=== PATIENT | male | born 1990 | race Caucasian/White ===

== ENCOUNTER 2021-04-20 02:20 | Emergency (ER) | payer SELFPAY ==
[~2021-04-20] VITALS: Ht 162.6 cm; Wt 64.4 kg
--- NOTE | 2021-04-20 02:25 | NUR ---
PT KB FROM STREET C/O GEN BODY PAIN. RELEASED FROM DETENTION TODAY. PLACED IN BED 4, ER MD AT BEDSIDE FOR EVAL. AWAITING ORDERS.
[2021-04-20] MEDS ORDERED: oxyCODONE/APAP (5/325 MG) 1 UDTAB TABLET ONE (02:47)
[2021-04-20] MEDS ORDERED: ONDANSETRON 4 MG TAB.RAPDIS ONE (02:47)
[2021-04-20] MEDS ORDERED: ONDANSETRON 4 MG TAB.RAPDIS SL ONE (03:00)
[2021-04-20] MEDS ORDERED: oxyCODONE/APAP (5/325 MG) 1 UDTAB TABLET PO ONE (03:00)
[2021-04-20 03:07] VITALS: BP 125/79
[2021-04-20] MEDS ORDERED: SULF1TAB48 PO (03:20)
--- NOTE | 2021-04-20 03:21 | NUR ---
Patient discharged to home in stable condition. Written and verbal after care instructions given. Patient verbalizes understanding of instruction.pt. ambulatory with a steady gait
== END 2021-04-20 04:05 | disposition home or self-care (01) ==
LOC: ER 02:23
DX: L03.031 Cellulitis of right toe (principal); R23.8 Other skin changes; Z76.5 Malingerer [conscious simulation]; Z59.0 Homelessness; Z79.899 Other long term (current) drug therapy
CPT/HCPCS: 99283; Q0162

== ENCOUNTER 2021-06-07 01:44 | Emergency (ER) | payer SELFPAY ==
[~2021-06-07] VITALS: Ht 167.6 cm; Wt 54.4 kg
[~2021-06-07 01:44] MED LIST: SULF1TAB48 PO
--- NOTE | 2021-06-07 01:55 | NUR ---
PRESENTED TO THE ER FOR EVALUATION OF EPIGASTRIC PAIN FOR THE PAST FEW HOURS. NO VOMITING, NO FEVER OR CHILLS. PT WAS PLACED IN BED 4 ER, ON MONITOR. VSS. WILL CONT TO MONITOR
[2021-06-07] MEDS ORDERED: ONDANSETRON HCL/PF 4 MG/2 ML VIAL ONE (01:59)
[2021-06-07] MEDS ORDERED: MAG HYDROX/AL HYDROX/SIMETH 30 ML UDC ONE (01:59)
[2021-06-07] MEDS ORDERED: MAG HYDROX/AL HYDROX/SIMETH 30 ML UDC PO ONE (02:00)
[2021-06-07] MEDS ORDERED: IV NS 0.9% 1,000 ML BAG IV ONE (02:00)
[2021-06-07] MEDS ORDERED: ONDANSETRON HCL/PF 4 MG/2 ML VIAL IVP ONE (02:00)
[2021-06-07 02:18] LABS: BASOPHILS # (AUTO) 0.1 K/uL (0.0-0.2); BASOPHILS % (AUTO) 0.5 % (0.0-2.0); EOSINOPHILS % (AUTO) 1.3 % (0.0-6.0); HEMATOCRIT 47 % (39-51); HEMOGLOBIN 15.9 g/dL (13.5-17.5); LYMPHOCYTES # (AUTO) 2.7 K/uL (0.8-4.8); MEAN CORPUSCULAR HGB CONC 34 g/dl (31.0-36.0); MEAN CORPUSCULAR VOLUME 90 fL (80-96); MONOCYTES # (AUTO) 0.9 K/uL (0.1-1.30); NEUTROPHILS # (AUTO) 7.1 K/uL (1.8-8.9); NEUTROPHILS % (AUTO) 65.2 % (43.0-81.0); PLATELET COUNT (AUTO) 220 K/uL (150-450); RED BLOOD CELL COUNT(AUTO) 5.17 MIL/uL (4.5-6.0); WHITE BLOOD COUNT (AUTO) 10.8 K/uL (4.3-11.0)
[2021-06-07 02:25] LABS: CALCIUM, SERUM 8.6 mg/dL (8.5-10.1); CREATININE 0.9 mg/dL (0.6-1.3)
[2021-06-07 02:32] LABS: ALBUMIN 4.1 g/dL (3.4-5.0); BILIRUBIN,DIRECT 0.1 mg/dL (0.0-0.2); BILIRUBIN,TOTAL 0.3 mg/dL (0.2-1.0); TOTAL PROTEIN, SERUM 7.7 g/dL (6.4-8.2)
--- NOTE | 2021-06-07 03:09 | NUR ---
LAYING DOWN IN BED REPORTED FEELING GOOD AND READY TO GET DISCHARGED. VSS. MADE AWARE
[2021-06-07] MEDS ORDERED: OMEP40CA21 PO (03:46)
[2021-06-07 03:58] VITALS: BP 115/74
--- NOTE | 2021-06-07 03:58 | NUR ---
Patient discharged to home in stable condition. Written and verbal after care instructions given. Patient verbalizes understanding of instruction.
--- NOTE | 2021-06-07 03:58 | NUR ---
IV removed. Catheter intact and site benign. Pressure and 4x4 applied to site. No bleeding noted.
== END 2021-06-07 03:58 | disposition home or self-care (01) ==
LOC: ER 01:45
DX: K21.9 Gastro-esophageal reflux disease without esophagitis (principal)
CPT/HCPCS: 36415; 80048; 80076; 83690; 85025; 96361; 96374; 99283; J2405; J7030

== ENCOUNTER 2021-09-28 03:11 | Emergency (ER) | payer OTHER ==
[~2021-09-28] VITALS: Ht 167.6 cm; Wt 54.4 kg
[~2021-09-28 03:11] MED LIST changes: +OMEP40CA21 PO
[2021-09-28 07:00] VITALS: BP 122/78
== END 2021-09-28 07:01 | disposition home or self-care (01) ==
LOC: ER 03:15
DX: M54.9 Dorsalgia, unspecified (principal); Z76.5 Malingerer [conscious simulation]; Z59.00 Homelessness unspecified; F17.200 Nicotine dependence, unspecified, uncomplicated; Z60.2 Problems related to living alone; Z79.899 Other long term (current) drug therapy

== ENCOUNTER 2022-10-13 23:11 | Emergency (ER) | payer OTHER ==
[~2022-10-13] VITALS: Ht 165.1 cm; Wt 72.1 kg
--- NOTE | 2022-10-13 23:20 | NUR ---
[id number] FROM STREET C/O ACTING STRANGE IN FRONT OF SMOKE SHOP. PT A/OX3. TOLERATING R/A WELL WITH NO RESP DISTRESS; RR EVEN AND NON LABORED. SAFETY MEASURES IN PLACE.
--- NOTE | 2022-10-14 00:47 | NUR ---
Patient discharged to home in stable condition. Written and verbal after care instructions given. Patient verbalizes understanding of instruction.
[2022-10-14 00:48] VITALS: BP 125/81
== END 2022-10-14 00:48 | disposition home or self-care (01) ==
LOC: ER 23:38
DX: F19.10 Other psychoactive substance abuse, uncomplicated (principal); F17.200 Nicotine dependence, unspecified, uncomplicated; Z60.2 Problems related to living alone; Z79.899 Other long term (current) drug therapy
CPT/HCPCS: 82962-TC

== ENCOUNTER 2024-04-14 16:01 | Emergency (ER) | payer OTHER ==
[~2024-04-14] VITALS: Ht 170.2 cm; Wt 59.9 kg
[2024-04-14] MEDS ORDERED: TRAMADOL HCL 50 MG TABLET ONE (17:57)
[2024-04-14] MEDS ORDERED: KETOROLAC TROMETHAMINE INJ 30 MG/ML VIAL ONE (17:57)
[2024-04-14] MEDS: KETOROLAC TROMETHAMINE INJ 30 MG/ML VIAL IM ONE (18:01)
[2024-04-14] MEDS: TRAMADOL HCL 50 MG TABLET PO ONE (18:02)
[2024-04-14] MEDS ORDERED: KETO10TA2 PO (19:13)
[2024-04-14 19:29] VITALS: BP 126/75; TEMP 98.5; O2SAT 100
== END 2024-04-14 19:29 | disposition home or self-care (01) ==
LOC: ER 16:20
DX: T69.022A Immersion foot, left foot, initial encounter (principal); T69.021A Immersion foot, right foot, initial encounter; G89.29 Other chronic pain; M79.644 Pain in right finger(s); F17.200 Nicotine dependence, unspecified, uncomplicated; Z76.5 Malingerer [conscious simulation]; Z79.899 Other long term (current) drug therapy; Z59.00 Homelessness unspecified; Z60.2 Problems related to living alone
CPT/HCPCS: 99283; 96372; 73130; J1885

== ENCOUNTER 2024-04-14 20:33 | Emergency (ER) | payer OTHER ==
[~2024-04-14] VITALS: Ht 170.2 cm; Wt 56.7 kg
[~2024-04-14 20:33] MED LIST changes: +KETO10TA2 PO
[2024-04-14 20:51] VITALS: BP 131/68; TEMP 98.1
[2024-04-14 21:48] VITALS: O2SAT 99
== END 2024-04-14 21:49 | disposition home or self-care (01) ==
LOC: ER 20:34
DX: Z76.5 Malingerer [conscious simulation] (principal); Z59.02 Unsheltered homelessness

== ENCOUNTER 2024-04-29 04:33 | Emergency (ER) | payer OTHER ==
[~2024-04-29] VITALS: Ht 152.4 cm; Wt 61.2 kg
[2024-04-29 05:16] VITALS: BP 134/81; TEMP 98.2; O2SAT 98
== END 2024-04-29 05:17 | disposition home or self-care (01) ==
LOC: ER 04:33
DX: M79.671 Pain in right foot (principal); F19.10 Other psychoactive substance abuse, uncomplicated; F17.200 Nicotine dependence, unspecified, uncomplicated; Z59.00 Homelessness unspecified; Z60.2 Problems related to living alone

== ENCOUNTER 2024-05-09 17:52 | Emergency (ER) | payer OTHER ==
[~2024-05-09] VITALS: Ht 167.6 cm; Wt 59.9 kg
[2024-05-09 18:07] VITALS: BP 142/72; TEMP 98.7; O2SAT 100
== END 2024-05-09 19:14 | disposition left against medical advice (07) ==
LOC: ER 17:55
DX: Z00.00 Encounter for general adult medical examination without abnormal findings (principal); Z53.21 Procedure and treatment not carried out due to patient leaving prior to being seen by health care provider

== ENCOUNTER 2024-11-24 08:58 | Emergency (ER) | payer OTHER ==
[~2024-11-24] VITALS: Ht 167.6 cm; Wt 59.0 kg
[2024-11-24 09:25] VITALS: BP 153/98; TEMP 98.2; O2SAT 98
== END 2024-11-24 09:26 | disposition left against medical advice (07) ==
LOC: ER 08:58
DX: M79.671 Pain in right foot (principal); M79.672 Pain in left foot; Z53.21 Procedure and treatment not carried out due to patient leaving prior to being seen by health care provider

== ENCOUNTER 2024-12-08 09:34 | Emergency (ER) | payer OTHER ==
[~2024-12-08] VITALS: Ht 152.4 cm; Wt 63.5 kg
[2024-12-08] MEDS ORDERED: ACET-2605 PO (11:01)
[2024-12-08] MEDS ORDERED: CYCL10TA9 PO (11:01)
[2024-12-08] MEDS ORDERED: IBUP-1490 PO (11:01)
[2024-12-08] MEDS ORDERED: IBUPROFEN 600 MG TABLET ONE (11:02)
[2024-12-08] MEDS ORDERED: CYCLOBENZAPRINE 10 MG TABLET ONE (11:02)
[2024-12-08] MEDS ORDERED: ACETAMINOPHEN ES 500 MG TABLET ONE (11:02)
[2024-12-08] MEDS: CYCLOBENZAPRINE 10 MG TABLET PO ONE (11:05)
[2024-12-08] MEDS: IBUPROFEN 600 MG TABLET PO ONE (11:06)
[2024-12-08] MEDS: ACETAMINOPHEN ES 500 MG TABLET PO ONE (11:07)
[2024-12-08 11:30] VITALS: BP 125/81; TEMP 97.7; O2SAT 95
== END 2024-12-08 11:31 | disposition home or self-care (01) ==
LOC: ER 09:38
DX: M62.830 Muscle spasm of back (principal); F17.200 Nicotine dependence, unspecified, uncomplicated; F19.11 Other psychoactive substance abuse, in remission; M41.9 Scoliosis, unspecified; Z59.00 Homelessness unspecified; Z79.899 Other long term (current) drug therapy

== ENCOUNTER 2024-12-15 17:20 | Emergency (ER) | payer OTHER ==
[~2024-12-15] VITALS: Ht 165.1 cm; Wt 72.6 kg
[~2024-12-15 17:20] MED LIST changes: +ACET-2605 PO; +CYCL10TA9 PO; +IBUP-1490 PO
[2024-12-15 18:55] LABS: BASOPHILS # (AUTO) 0.1 K/uL (0.0-0.2); BASOPHILS % (AUTO) 0.7 % (0.0-2.0); EOSINOPHILS # (AUTO) 0.2 K/uL (0.0-0.7); EOSINOPHILS % (AUTO) 1.9 % (0.0-6.0); HEMATOCRIT 43 % (39-51); HEMOGLOBIN 14.3 g/dL (13.5-17.5); LYMPHOCYTES # (AUTO) 2.4 K/uL (0.8-4.8); MEAN CORPUSCULAR HEMOGLOBIN 29 PG (26.0-33.0); MEAN CORPUSCULAR HGB CONC 34 g/dl (31.0-36.0); MEAN CORPUSCULAR VOLUME 87 fL (80-96); MONOCYTES # (AUTO) 0.7 K/uL (0.1-1.30); MONOCYTES % (AUTO) 8.9 % (2.0-12.0); NEUTROPHILS # (AUTO) 4.9 K/uL (1.8-8.9); NEUTROPHILS % (AUTO) 59.5 % (43.0-81.0); PLATELET COUNT (AUTO) 318 K/uL (150-450); RED BLOOD CELL COUNT(AUTO) 4.94 MIL/uL (4.5-6.0); RED CELL DISTRIBUTION WIDTH 13.5 % (11.5-15.0); WHITE BLOOD COUNT (AUTO) 8.3 K/uL (4.3-11.0)
[2024-12-15] MEDS ORDERED: MAG HYDROX/AL HYDROX/SIMETH 30 ML UDC ONE (19:39)
[2024-12-15] MEDS ORDERED: KETOROLAC TROMETHAMINE INJ 30 MG/ML VIAL ONE (19:39)
[2024-12-15 19:41] LABS: CALCIUM, SERUM 8.4 mg/dL (8.5-10.1); CREATININE 0.8 mg/dL (0.6-1.3)
[2024-12-15] MEDS: KETOROLAC TROMETHAMINE 15 MG/ML VIAL IM ONE (19:44)
[2024-12-15] MEDS: MAG HYDROX/AL HYDROX/SIMETH 30 ML UDC PO ONE (19:44)
[2024-12-15 19:54] LABS: ALBUMIN 3.3 g/dL (3.4-5.0); BILIRUBIN,DIRECT 0.1 mg/dL (0.0-0.2); BILIRUBIN,TOTAL 0.2 mg/dL (0.2-1.0); TOTAL PROTEIN, SERUM 7.2 g/dL (6.4-8.2)
[2024-12-15] MEDS ORDERED: PANT40TA2 PO (20:33)
[2024-12-15] MEDS ORDERED: FAMO-131 PO (20:33)
[2024-12-15 20:52] VITALS: BP 117/80; TEMP 98.1; O2SAT 98
== END 2024-12-15 20:53 | disposition home or self-care (01) ==
LOC: ER 17:37
DX: K29.70 Gastritis, unspecified, without bleeding (principal); R10.13 Epigastric pain; F17.200 Nicotine dependence, unspecified, uncomplicated; Z79.899 Other long term (current) drug therapy; Z60.2 Problems related to living alone
CPT/HCPCS: 36415; 80048-TC; 80076-TC; 83690-TC; 85025-TC; J1885

== ENCOUNTER 2025-01-13 16:31 | Emergency (ER) | payer OTHER ==
[~2025-01-13 16:31] MED LIST changes: +FAMO-131 PO; +PANT40TA2 PO
== END 2025-01-13 16:40 | disposition left against medical advice (07) ==
LOC: ER 16:40
DX: M54.9 Dorsalgia, unspecified (principal); Z53.21 Procedure and treatment not carried out due to patient leaving prior to being seen by health care provider